=== PATIENT | male | born 1955 | race Caucasian/White ===

== ENCOUNTER → 2024-06-11 06:17 | Outpatient (REF) | payer MEDICARE, SELFPAY ==
[2024-06-11 09:00] LABS: Hematocrit 43.1 % (39.0-52.0); Hemoglobin 14.4 g/dL (13.0-18.0); Mean Corp Hgb Conc. 33.4 g/dL (33.0-37.0); Mean Corpuscular Hgb 30.8 pg (27.0-31.0); Mean Corpuscular Volume 92.1 fL (80.0-94.0); Mean Platelet Volume 11.3 fL (7.4-10.4); Platelet Count 223 10^3/uL (130-400); Red Blood Cell Count 4.68 10^6/uL (4.70-6.10); White Blood Cell Count 3.8 10^3/uL (4.8-10.8)
[2024-06-11 09:21] LABS: Blood Urea Nitrogen 30 mg/dl (9-20); Calcium 9.5 mg/dl (8.4-10.2); Carbon Dioxide 26 mmol/L (22-30); Chloride 103 mmol/L (98-107); Glucose 94 mg/dl (70-99); Potassium 4.5 mmol/L (3.5-5.1); Sodium 140 mmol/L (135-145); eGFR > 60.00
== END ==
LOC: SDSPAT 06:17
PROVIDERS: ATTENDING PHYSICIAN Orthopaedic Surgery Hand Surgery; FAMILY PHYSICIAN Family Medicine
DX: Z01.818 Encounter for other preprocedural examination (principal)
CPT/HCPCS: 36415; 80048; 85027; 93005

== ENCOUNTER → 2024-06-15 06:48 | Outpatient (REF) | payer MEDICARE, SELFPAY | LOC: PAVMRI 06:48 | PROVIDERS: ATTENDING PHYSICIAN Physician Assistant Surgical; FAMILY PHYSICIAN Family Medicine | DX: M25.511 Pain in right shoulder (principal) | CPT/HCPCS: 73221 ==

== ENCOUNTER 2024-06-19 06:25 | Day surgery (SDC) | payer MEDICARE, SELFPAY ==
[2024-06-11 13:06] VITALS: BMI 29.1
[2024-06-19] VITALS (14 sets, daily range): BP systolic 111–132; BP diastolic 71–103; BMI 29.1
[2024-06-19] MEDS: CELEBREX 200 MG PO (11:54)
[2024-06-19] MEDS: TYLENOL 1000 MG PO (11:54)
[2024-06-19] MEDS: NORMOSOL-R/PLASMALYTE-A 1000 IV (12:07)
[2024-06-19] MEDS: DILAUDID 0.5 MG IV ×3 (15:30→16:26)
[2024-06-19] MEDS: ZOFRAN 4 MG IV (15:44)
[2024-06-19] MEDS: TORADOL 30 MG IV (16:11)
[2024-06-19] MEDS: ROXICODONE 10 MG PO (17:47)
== END 2024-06-19 18:27 | disposition home or self-care (01) ==
LOC: SDS 06:25
PROVIDERS: ATTENDING PHYSICIAN Orthopaedic Surgery Hand Surgery
DX: M75.102 Unspecified rotator cuff tear or rupture of left shoulder, not specified as traumatic (principal); S46.212A Strain of muscle, fascia and tendon of other parts of biceps, left arm, initial encounter; X58.XXXA Exposure to other specified factors, initial encounter; M75.42 Impingement syndrome of left shoulder; M77.8 Other enthesopathies, not elsewhere classified; M25.712 Osteophyte, left shoulder
CPT/HCPCS: 29827; 29828; C1713